=== PATIENT | female | born 1995 | race Asian ===

== ENCOUNTER 2019-01-19 08:17 | Outpatient (CLI) | payer BC ==
--- NOTE | 2019-01-19 09:03 | MRI ---
EXAM: MRI Brain WO Con PROVIDED CLINICAL HISTORY: Headache for 3 weeks. COMPARISON: None FINDINGS: No signal abnormalities are seen throughout the brain. There is no evidence of an acute infarction. T he septum pellucidum and third ventricle are in the midline. The ventricular system is normal in size, shape, and position. Appropriate flow voids are demonstrated at the base of the brain. Minimal mucosal thickening is seen in a few ethmoidal air cells. Remainder the visualized paranasal s inuses are clear. The orbits and skull base demonstrate a normal MRI appearance. IMPRESSION: No acute intracranial abnormality is demonstrated.
== END 2019-01-19 08:18 | disposition home or self-care (01) ==
LOC: TBSIIMAG 08:17
PROVIDERS: ATTEND Family Medicine
DX: R51 Headache (principal)
CPT/HCPCS: 70551

== ENCOUNTER 2020-03-16 11:49 | Outpatient (CLI) | payer BC ==
--- NOTE | 2020-03-16 12:07 | RAD ---
RADIOGRAPH LEFT FOOT 3VIEWS: DATE: 03/16/2020 HISTORY: 24-year-old female with persistent acute, traumatic left foot pain FINDINGS: There is no evidence of fracture or dislocation. There is no evidence of periostitis, permeative lesi on, osteolytic lesion, or osteoblastic lesion. The joint spaces are maintained without erosions or significant osteophytes. IMPRESSION: No fracture
== END 2020-03-16 11:50 | disposition home or self-care (01) ==
LOC: BICRAD 11:49
PROVIDERS: ATTEND Family Medicine
DX: M79.672 Pain in left foot (principal)
CPT/HCPCS: 36415; 80053; 80061; 83036; 84443; 84550; 85025; 86140